=== PATIENT | female | born 1990 | race African-American/Black ===

== ENCOUNTER 2020-12-09 14:55 | Emergency (ER) | payer MEDICARE ==
[~2020-12-09] VITALS: Ht 172.7 cm; Wt 72.6 kg
[2020-12-09] MEDS ORDERED: MUPIROCIN22 GM TOP (18:05)
== END 2020-12-09 18:08 | disposition home or self-care (01) ==
LOC: FSED 18:00
DX: L08.9 Local infection of the skin and subcutaneous tissue, unspecified (principal)
CPT/HCPCS: 99282